=== PATIENT | male | born 1940 | race Caucasian/White ===

== ENCOUNTER 2019-11-30 18:59 | Emergency (ER) | payer MEDICARE, BC ==
[~2019-11-30] VITALS: Ht 177.8 cm; Wt 90.7 kg
--- NOTE | 2019-11-30 19:02 | NUR ---
ED Nurse Note: Patient brought into ED by ambulance [id number] from [facility] s/p fall (patient got up from the wheelchair) landed on left side. no new trauma noted. caregiver at bedside, patient on a is consultant.
[2019-11-30] MEDS ORDERED: LOSARTAN POTASS25 MG ORAL (19:08)
[2019-11-30] MEDS ORDERED: DOXEPIN HCL25 MG ORAL (19:08)
[2019-11-30] MEDS ORDERED: HYDROCORTISONE28 G2 TP (19:08)
[2019-11-30] MEDS ORDERED: FLUOXETINE HCL40 MG ORAL (19:08)
[2019-11-30] MEDS ORDERED: DAILY VITE1 EACH ORAL (19:08)
[2019-11-30] MEDS ORDERED: HYDRALAZINE HCL25 M1 ORAL (19:08)
[2019-11-30] MEDS ORDERED: CORICIDIN COLD1 EACH PO (19:08)
[2019-11-30] MEDS ORDERED: ACETAMINOPHEN325 M1 ORAL (19:08)
[2019-11-30] MEDS ORDERED: MAG-OXIDE400 M1 PO (19:08)
[2019-11-30] MEDS ORDERED: KETOCONAZOLE10 GM MC (19:08)
[2019-11-30] MEDS ORDERED: IPRATROPIU0.2 MG/1 M HHN (19:08)
[2019-11-30] MEDS ORDERED: ATORVASTATIN CA40 MG ORAL (19:08)
[2019-11-30] MEDS ORDERED: ASPIR 8181 MG ORAL (19:08)
[2019-11-30] MEDS ORDERED: MELATONIN1 M1 SL (19:08)
--- NOTE | 2019-11-30 19:08 | NUR ---
HAND-OFF: Report given to Matilda ARRINGTON. endorsed all plan of care. caregiver at bedside.
[2019-11-30] MEDS ORDERED: OMEGA 3 1,0001 EACH PO (19:11)
[2019-11-30] MEDS ORDERED: ZOFRAN4 M3 ORAL (19:11)
[2019-11-30] MEDS ORDERED: METOPROLOL TART25 MG ORAL (19:11)
[2019-11-30] MEDS ORDERED: METFORMIN HCL500 M1 ORAL (19:11)
[2019-11-30] MEDS ORDERED: PANTOPRAZOLE SO40 MG ORAL (19:11)
[2019-11-30] MEDS ORDERED: OXYCODONE HCL5 M2 ORAL (19:11)
[2019-11-30] MEDS ORDERED: NIZORAL120 ML TP (19:11)
[2019-11-30] MEDS ORDERED: NUEDEXTA 20-101 EAC1 PO (19:11)
[2019-11-30 19:25] VITALS: BP 123/73
--- NOTE | 2019-11-30 19:25 | NUR ---
ED Nurse Note: Recieved report to resume care, pt returning from imaging, pt is awake and alert, pt is confused, explosive man at bedside, pt is resting quietly, denies pain, no s/s of any pain, pt has lac to forehead from previous fall, sutures intact, pt placed on cardiac monitoring, will resume care as ordered.
--- NOTE | 2019-11-30 19:43 | Diagnostic Imaging Report ---
Indications: Pain, trauma, status post fall Technique: Spiral acquisitions obtained through the brain. Angled axial and coronal 5 x 5 mm slices were reconstructed. Total dose length product 1426 mGycm. CTDI vol(s) 62 mGy. Dose reduction achieved using automated exposure control Comparison: None. Findings: There is an intraparenchymal hematoma in the left posterior temporal lobe. The margins are somewhat indistinct and the attenuation is slightly lower than hyperacute blood This measures approximately 16 mm transverse by 18 mm AP by 17 mm craniocaudad. This demonstrates surrounding edema. It does not result in any significant mass effect. There is an area of encephalomalacia involving the posterior right frontal lobe with some dystrophic cortical calcification. This is confluent with the larger area of encephalomalacia involving the anterior right frontal lobe which also demonstrates a large cystic component. Area of encephalomalacia with a cystic component is also seen in the inferior left frontal lobe. There is some encephalomalacia in the anterior right parietal lobe lobe and high right frontal deep white matter. This results in ex vacuo dilatation of the right lateral ventricle. There is generalized age-related enlargement of the ventricles and extra-axial CSF spaces. The smith-white differentiation is normal. There is opacification of the bilateral mastoids, right greater than left. The calvarium is intact. There is ethmoid sinus disease bilaterally. The visualized orbits are unremarkable. Impression: Acute or subacute left temporal hematoma, measuring 16 x 18 x 17 mm. Surrounding edema. Mild local mass effect Multiple areas of encephalomalacia, as described Right greater than left mastoid disease Sinus disease This agrees with the preliminary interpretation provided overnight by [facility] teleradiology service. The CT scanner at [facility] is accredited by the [employer] and the scans are performed using protocols designed to limit radiation exposure to as low as reasonably achievable to attain images of sufficient resolution adequate for diagnostic evaluation.
[2019-11-30] MEDS ORDERED: VIMPAT100 MG PO (20:40)
[2019-11-30 21:00] VITALS: BP 129/67
--- NOTE | 2019-11-30 21:00 | NUR ---
ED Nurse Note: Pt family has arrived at bedside along with pt porter sample case, pt is DNR and hospice, imaging ordered and completed, family only wants results and to keep comfortable and to home if not needed, pt on cardiac monitoriong, appears comfortable no s/s of pain or any distress, will continue to closely monitor while waiting for ambulance transport back to care facility.
[2019-11-30 22:00] VITALS: BP 126/68
--- NOTE | 2019-11-30 22:00 | NUR ---
ED Nurse Note: Pt continues to rest quietly in bed, on cardiac monitoring, v/s stable, no changes or increased distress, no sob or labored breathing, pt daughter, pillowcase turner and hospice worker at bedside, waiting for ambulance transport back to care facility.
[2019-11-30 22:15] VITALS: BP 126/68
--- NOTE | 2019-11-30 22:15 | NUR ---
ER DISCHARGE NOTE: Patient is cleared to be discharged per ERMD, , on room air, with stable vital signs. pt was given dc instructions, pt daughter was able to verbalize understanding, pt id band removed without complications. pt took all belongings.pt transported via ambulance.
--- NOTE | 2019-11-30 23:30 | Emergency Room Report ---
History of Present Illness General Chief Complaint: Multiple Trauma/Fall Source: Patient, Family Member Present Illness HPI 79-year-old male presents ED for evaluation. Brought in by EMS from senior care facility. Had witnessed fall today fell on his left side. Is here for evaluation. Sales Director at bedside states that patient is DNR/hospice. Patient denies any pain. No reported nausea or vomiting. Unable to provide any additional history at this time. No other aggravating relieving factors. Denies any other associated symptoms Allergies: Coded Allergies: ERYTHROMYCIN BASE (Verified Allergy, Unknown, 11/30/19) PENICILLINS (Verified Allergy, Unknown, 11/30/19) SULFA (SULFONAMIDE ANTIBIOTICS) (Verified Allergy, Unknown, 11/30/19) Patient History Past Medical History: HTN, CVA/TIA Pertinent Family History: none Social History: Denies: smoking, alcohol use, drug use Immunizations: UTD Reviewed Nursing Documentation: PMH: Agreed; PSxH: Agreed Nursing Documentation-PMH Past Medical History: No History, Except For Hx Cardiac Problems: Yes - STROKE, CAD Hx Hypertension: Yes Hx Diabetes: Yes Review of Systems All Other Systems: negative except mentioned in HPI Physical Exam Vital Signs Date Time Temp Pulse Resp B/P (MAP) Pulse Ox O2 Delivery O2 Flow Rate FiO2 11/30/19 18:55 98.2 72 18 123/73 (90) 100 Room Air Sp02 EP Interpretation: reviewed, normal General Appearance: no apparent distress, alert, GCS 15, non-toxic Head: normocephalic, other - sutures to scalp Eyes: bilateral eye normal inspection, bilateral eye PERRL ENT: hearing grossly normal, normal pharynx, no angioedema, normal voice Neck: full range of motion, supple/symm/no masses Respiratory: chest non-tender, lungs clear, normal breath sounds, speaking full sentences Cardiovascular #1: regular rate, rhythm, no edema Gastrointestinal: normal inspection Rectal: deferred Genitourinary: no CVA tenderness Musculoskeletal: normal inspection Neurologic: other - nonverbal Psychiatric: other - nonverbal Skin: no rash Lymphatic: normal inspection Medical Decision Making Diagnostic Impression: Primary Impression: Intraparenchymal hemorrhage of brain ER Course Hospital Course 79-year-old male presents with fall and head injury today Differential diagnoses include: skull fx, intracranial injury, concussion Clinical course Patient placed on stretcher. After initial history and physical I ordered CT head Head shows intraparenchymal bleed on the left side. No mass-effect. No midline shift. netbackup administrator from facility at bedside. States that patient was seen at [facility] end of October for a fall and had a bleed on the left side. It is possible that this is the same subacute bleed may be with a acute component. However patient is DNR/hospice. Daughter is now at bedside and agrees that she does not want further advanced intervention at this time. We will discharge back to senior care facility where patient will be remain hospice. discussed with Dr Hansen who admitted patient at [facility] last and agrees with plan. Diagnosis - intraparenchymal hemorrage Stable and discharged to SNF with Rx Vimpat. Followup with PMD. Return to ED if symptoms recur or worsen CT/MRI/US Diagnostic Results CT/MRI/US Diagnostic Results : Imaging Test Ordered: CT Head Impression 2 cm hematoma/hemorrhagic lesion in the left temporal region with surrounding edema. No midline shift. Multifocal regions of encephalomalacia. Atrophy and small vessel disease. Mastoid opacification, right greater than left. Mild opacification/thickening in the right middle ear. Last Vital Signs Date Time Temp Pulse Resp B/P (MAP) Pulse Ox O2 Delivery O2 Flow Rate FiO2 11/30/19 21:00 98.4 58 16 129/67 98 Room Air Status: unchanged Disposition: XFER SNF Condition: Stable Scripts Lacosamide (VIMPAT) 100 Mg Tablet 100 MG PO BID for 7 Days, TAB Prov: Yao William MD 11/30/19 Referrals: Mason Hong MD NON PHYSICIAN (PCP) Patient Instructions: Traumatic Brain Injury Yao William MD Nov 30, 2019 23:30
== END 2019-11-30 22:15 ==
LOC: EDBD 18:59 → EMR 19:30
DX: I61.8 Other nontraumatic intracerebral hemorrhage (principal); Z88.2 Allergy status to sulfonamides; Z88.0 Allergy status to penicillin; I11.9 Hypertensive heart disease without heart failure; I11.0 Hypertensive heart disease with heart failure; E11.9 Type 2 diabetes mellitus without complications; Z86.73 Personal history of transient ischemic attack (TIA), and cerebral infarction without residual deficits; G93.89 Other specified disorders of brain
CPT/HCPCS: 70450; 99284